=== PATIENT | male | born 1965 | race African-American/Black ===

== ENCOUNTER 2021-05-02 18:50 | Inpatient (IN) | payer OTHER ==
[2021-05-02] MEDS ORDERED: LACTATED RINGERS SOLUTION 1000 ML INFUS.BAG IV ONE ×2 (20:03→21:19)
[2021-05-02 20:34] LABS: BASO % 0.4 % (0-2.0); EOS % 0.1 % (0-4.5); HEMATOCRIT 35.3 % (35.4-49); HEMOGLOBIN 11.4 GM/dL (11.7-16.9); LYMPH % 16.9 % (8-40); MCH 28.8 pg (25.7-33.7); MCHC 32.4 g/dl (32.0-35.9); MEAN CELL VOLUME 88.9 fl (80-96); MEAN PLT VOLUME 9.4 fl (7.5-11.1); MONO % 9.2 % (3.8-10.2); NEUT % 73.4 % (42.8-82.8); PLATELET COUNT 207 10^3/uL (134-434); RBC 3.97 M/mm3 (4.00-5.60); RDW 14.2 % (11.9-15.9); WHITE BLOOD COUNT 10.7 K/mm3 (4.0-10.0)
[2021-05-02 20:55] LABS: CHLORIDE 104 mmol/L (98-107); SODIUM 132 mmol/L (136-145)
[2021-05-02 20:56] LABS: CALCIUM 9.7 mg/dL (8.5-10.1)
[2021-05-02 20:57] LABS: ALBUMIN 3.6 g/dl (3.4-5.0); ANION GAP 11 MMOL/L (8-16); BLOOD UREA NITROGEN 73.1 mg/dL (7-18); CO2 18 mmol/L (21-32)
[2021-05-02 21:00] LABS: CREATININE 4.4 mg/dL (0.55-1.3); SGOT/AST 22 U/L (15-37); SGPT/ALT 53 U/L (13-61)
[2021-05-02 21:02] LABS: BILIRUBIN,TOTAL 0.5 mg/dL (0.2-1); TOT PROT 8.1 g/dl (6.4-8.2)
[2021-05-02 21:03] LABS: ALK PHOS 330 U/L (45-117)
[2021-05-02 21:04] LABS: GLUCOSE,RANDOM 521 mg/dL (74-106)
[2021-05-02 22:02] LABS: INR 1.15 (0.83-1.09); PROTHROMBIN TIME (PATIENT) 13.8 SEC (9.7-13.0)
[2021-05-02 22:04] LABS: ACTIVATED PTT 27.1 SECONDS (25.2-36.5)
[2021-05-02] MEDS ORDERED: INSULIN REGULAR HUMAN 100 UNITS/ML *VIAL IVPUSH ONE (22:42)
[2021-05-02] MEDS ORDERED: DEXTROSE 50%-WATER - 25 GM/50 ML VIAL IVPUSH ONE (22:43)
[2021-05-02] MEDS ORDERED: SODIUM BICARBONATE 8.4% 50 MEQ/50 ML VIAL IV ONE (22:43)
[2021-05-02] MEDS ORDERED: DEXTROSE 50%-WATER 25 GM/50 ML DISP.SYRIN ONE (22:52)
[2021-05-02] MEDS ORDERED: SODIUM BICARBONATE 8.4% - 50 ML ONE (22:52)
[2021-05-02] MEDS ORDERED: ACETAMINOPHEN 1000 MG/100 ML VIAL (NON FORMULARY) IVPB ONE (23:13)
[2021-05-02] MEDS ORDERED: ACETAMINOPHEN INJECTION 100 ML IVPB ONE (23:26)
[2021-05-03 00:48] VITALS: BMI 26.6
[2021-05-03] MEDS: HEPARIN NA (PORCINE) 5,000 UNITS/ML 1ML VIAL SQ SCH ×3 (05:48→21:03)
[2021-05-03] MEDS: INSULIN SLIDING SCALE (NOVOLOG) 1 VIAL SQ SCH ×4 (06:23→23:04)
[2021-05-03 06:42] LABS: BASO % 0.5 % (0-2.0); EOS % 1.2 % (0-4.5); HEMATOCRIT 35.8 % (35.4-49); HEMOGLOBIN 11.3 GM/dL (11.7-16.9); MCH 28.7 pg (25.7-33.7); MCHC 31.6 g/dl (32.0-35.9); MEAN CELL VOLUME 90.8 fl (80-96); MONO % 10.8 % (3.8-10.2); NEUT % 71.5 % (42.8-82.8); PLATELET COUNT 218 10^3/uL (134-434); RBC 3.95 M/mm3 (4.00-5.60); RDW 14.6 % (11.9-15.9)
[2021-05-03 07:03] LABS: CHLORIDE 106 mmol/L (98-107); SODIUM 137 mmol/L (136-145)
[2021-05-03 07:22] LABS: ALBUMIN 3.4 g/dl (3.4-5.0); CALCIUM 9.5 mg/dL (8.5-10.1)
[2021-05-03 07:23] LABS: ANION GAP 10 MMOL/L (8-16); CO2 20 mmol/L (21-32); MAGNESIUM 2.3 mg/dL (1.8-2.4)
[2021-05-03 07:25] LABS: BILIRUBIN,TOTAL 0.7 mg/dL (0.2-1); CHOLESTEROL 175 mg/dL (50-200); CREATININE 3.9 mg/dL (0.55-1.3); SGOT/AST 19 U/L (15-37)
[2021-05-03 07:26] LABS: ALK PHOS 305 U/L (45-117); LDL CHOLESTEROL (ONLY SJRH) 72 mg/dL (5-100); PHOSPHOROUS 3.5 mg/dL (2.5-4.9); TRIGLYCERIDES 122 mg/dL (0-150)
[2021-05-03 07:27] LABS: HDL CHOLESTEROL 84 mg/dL (40-60); SGPT/ALT 46 U/L (13-61); TOT PROT 7.7 g/dl (6.4-8.2)
[2021-05-03 07:34] LABS: GLUCOSE,RANDOM 424 mg/dL (74-106)
[2021-05-03] MEDS: ACETAMINOPHEN 325 MG TABLET (FP) PO PRN ×2 (12:18→21:02)
[2021-05-03] MEDS ORDERED: SODIUM CHLORIDE 0.9% 500 ML INFUS.BAG IV ONE (21:10)
[2021-05-03] MEDS ORDERED: CEFTRIAXONE 1 GM in DEXTROSE 5%-WATER - 50 ML IVPB ONE (21:11)
[2021-05-03 22:07] LABS: PH,URINE 5.5 (5.0-8.0); URINE APPEARANCE CLEAR; URINE BILIRUBIN NEGATIVE (NEGATIVE); URINE COLOR YELLOW; URINE GLUCOSE (UA) 3+ (NEGATIVE); URINE KETONE NEGATIVE (NEGATIVE); URINE LEUK ESTERASE NEGATIVE (NEGATIVE); URINE NITRITE NEGATIVE (NEGATIVE); URINE PROTEIN TRACE (NEGATIVE)
[2021-05-03] MEDS ORDERED: DEXTROSE 5%-WATER - 50 ML IVPB ONE (22:07)
[2021-05-03] MEDS ORDERED: cefTRIAXone SODIUM 1 GM VIAL ONE (22:07)
[2021-05-04] MEDS: HEPARIN NA (PORCINE) 5,000 UNITS/ML 1ML VIAL SQ SCH ×3 (06:02→21:30)
[2021-05-04] MEDS: INSULIN SLIDING SCALE (NOVOLOG) 1 VIAL SQ SCH ×4 (06:02→21:47)
[2021-05-04] MEDS: ACETAMINOPHEN 325 MG TABLET (FP) PO PRN ×3 (06:03→21:30)
[2021-05-04 07:34] LABS: CALCIUM 9.7 mg/dL (8.5-10.1)
[2021-05-04 07:35] LABS: BLOOD UREA NITROGEN 57.5 mg/dL (7-18)
[2021-05-04 07:38] LABS: CREATININE 3.4 mg/dL (0.55-1.3)
[2021-05-04] MEDS ORDERED: BENZOCAINE/MENTH/CETYLPYRD CL 1 EACH LOZENGE MM PRN (09:04)
[2021-05-04] MEDS ORDERED: INSULIN (NOVOLOG) ASPART 100 UNITS/ML 10ML VIAL ONE (13:08)
[2021-05-04] MEDS ORDERED: DOCUSATE SODIUM 100 MG CAPSULE (FP) PO ONE (14:00)
[2021-05-04] MEDS: POLYETHYLENE GLYCOL (HEALTHYLAX) 3350 17 GM PACKET PO SCH (17:21)
[2021-05-04] MEDS ORDERED: SODIUM CHLORIDE 0.45% 1,000 ML IV SCH (17:45)
[2021-05-04] MEDS: SODIUM ZIRCONIUM CYCLOSILICATE (LOKELMA) 5 GM PACKET PO SCH (18:20)
[2021-05-04] MEDS: SODIUM BICARBONATE 650 MG TABLET PO SCH (21:30)
[2021-05-05] MEDS: ACETAMINOPHEN 325 MG TABLET (FP) PO PRN ×2 (04:16→21:14)
[2021-05-05] MEDS: HEPARIN NA (PORCINE) 5,000 UNITS/ML 1ML VIAL SQ SCH ×3 (06:03→21:15)
[2021-05-05] MEDS: INSULIN SLIDING SCALE (NOVOLOG) 1 VIAL SQ SCH ×4 (06:26→21:36)
[2021-05-05 07:02] LABS: BASO % 0.8 % (0-2.0); EOS % 1.3 % (0-4.5); HEMATOCRIT 36.4 % (35.4-49); HEMOGLOBIN 11.7 GM/dL (11.7-16.9); LYMPH % 13.1 % (8-40); MCH 28.7 pg (25.7-33.7); MEAN CELL VOLUME 89.5 fl (80-96); MEAN PLT VOLUME 10.7 fl (7.5-11.1); MONO % 11.6 % (3.8-10.2); NEUT % 73.2 % (42.8-82.8); PLATELET COUNT 210 10^3/uL (134-434); RBC 4.07 M/mm3 (4.00-5.60); RDW 14.2 % (11.9-15.9); WHITE BLOOD COUNT 13.6 K/mm3 (4.0-10.0)
[2021-05-05] MEDS: INSULIN (LEVEMIR) 100 UNITS/ML UNITS SQ SCH (07:14)
[2021-05-05 07:21] LABS: BLOOD UREA NITROGEN 52.5 mg/dL (7-18)
[2021-05-05 07:24] LABS: CALCIUM 9.6 mg/dL (8.5-10.1)
[2021-05-05 07:25] LABS: ALBUMIN 3.2 g/dl (3.4-5.0)
[2021-05-05 07:28] LABS: CREATININE 3.4 mg/dL (0.55-1.3); PHOSPHOROUS 3.4 mg/dL (2.5-4.9)
[2021-05-05 07:29] LABS: TOT PROT 7.9 g/dl (6.4-8.2)
[2021-05-05] MEDS: ACETAMINOPHEN/CAFFEINE/BUTALBITAL 1 TAB PO PRN (10:15)
[2021-05-05] MEDS: SODIUM BICARBONATE 650 MG TABLET PO SCH ×3 (10:16→21:14)
[2021-05-05] MEDS: POLYETHYLENE GLYCOL (HEALTHYLAX) 3350 17 GM PACKET PO SCH (10:16)
[2021-05-05] MEDS: SODIUM ZIRCONIUM CYCLOSILICATE (LOKELMA) 5 GM PACKET PO SCH (10:16)
[2021-05-05] MEDS: ABACAVIR SULFATE 300 MG TABLET PO SCH (21:14)
[2021-05-05] MEDS: RALTEGRAVIR POTASSIUM 400 MG TAB PO SCH (21:15)
[2021-05-05] MEDS ORDERED: INSULIN (LEVEMIR) 100 UNITS/ML UNITS SQ SCH (22:00)
[2021-05-06] MEDS: ACETAMINOPHEN/CAFFEINE/BUTALBITAL 1 TAB PO PRN (02:00)
[2021-05-06] MEDS: HEPARIN NA (PORCINE) 5,000 UNITS/ML 1ML VIAL SQ SCH ×3 (05:03→21:03)
[2021-05-06] MEDS: SODIUM BICARBONATE 650 MG TABLET PO SCH ×3 (05:03→21:01)
[2021-05-06] MEDS: INSULIN (LEVEMIR) 100 UNITS/ML UNITS SQ SCH (06:34)
[2021-05-06] MEDS: INSULIN SLIDING SCALE (NOVOLOG) 1 VIAL SQ SCH ×4 (06:35→21:20)
[2021-05-06 07:15] LABS: BASO % 0.6 % (0-2.0); EOS % 0.8 % (0-4.5); HEMATOCRIT 35.1 % (35.4-49); HEMOGLOBIN 11.4 GM/dL (11.7-16.9); LYMPH % 14.7 % (8-40); MCH 28.9 pg (25.7-33.7); MCHC 32.4 g/dl (32.0-35.9); MEAN PLT VOLUME 10.7 fl (7.5-11.1); MONO % 13.2 % (3.8-10.2); NEUT % 70.7 % (42.8-82.8); PLATELET COUNT 210 10^3/uL (134-434); RBC 3.94 M/mm3 (4.00-5.60); RDW 13.9 % (11.9-15.9); WHITE BLOOD COUNT 13.7 K/mm3 (4.0-10.0)
[2021-05-06 07:40] LABS: BLOOD UREA NITROGEN 46.2 mg/dL (7-18); CALCIUM 9.3 mg/dL (8.5-10.1)
[2021-05-06 07:43] LABS: CREATININE 3.4 mg/dL (0.55-1.3); PHOSPHOROUS 4.1 mg/dL (2.5-4.9)
[2021-05-06 07:45] LABS: BILIRUBIN,TOTAL 1.3 mg/dL (0.2-1); TOT PROT 7.8 g/dl (6.4-8.2)
[2021-05-06] MEDS: ACETAMINOPHEN 325 MG TABLET (FP) PO PRN ×2 (08:12→21:01)
[2021-05-06] MEDS: POLYETHYLENE GLYCOL (HEALTHYLAX) 3350 17 GM PACKET PO SCH (09:59)
[2021-05-06] MEDS: ABACAVIR SULFATE 300 MG TABLET PO SCH ×2 (09:59→21:01)
[2021-05-06] MEDS: lamiVUDine 150 MG TABLET PO SCH (09:59)
[2021-05-06] MEDS: LISINOPRIL 5 MG TABLET PO SCH (09:59)
[2021-05-06] MEDS: RALTEGRAVIR POTASSIUM 400 MG TAB PO SCH ×2 (09:59→21:01)
[2021-05-06] MEDS ORDERED: FLUTICASONE PROP 0.05% 16 GM NASAL SPRAY NS PRN (10:00)
[2021-05-06] MEDS ORDERED: PT OWN MED DRAWER 7, Y5N ONE (20:54)
[2021-05-06] MEDS: ATORVASTATIN CA 20 MG TABLET (FP) PO SCH (21:01)
[2021-05-06] MEDS ORDERED: INSULIN (LEVEMIR) 100 UNITS/ML UNITS SQ SCH ×2 (22:00)
[2021-05-07] MEDS ORDERED: ZOLPIDEM TARTRATE 5 MG TABLET PO ONE (01:00)
[2021-05-07] MEDS: HEPARIN NA (PORCINE) 5,000 UNITS/ML 1ML VIAL SQ SCH ×3 (05:37→21:17)
[2021-05-07] MEDS: SODIUM BICARBONATE 650 MG TABLET PO SCH ×3 (05:37→21:16)
[2021-05-07] MEDS: INSULIN SLIDING SCALE (NOVOLOG) 1 VIAL SQ SCH ×4 (06:37→21:37)
[2021-05-07] MEDS: INSULIN (LEVEMIR) 100 UNITS/ML UNITS SQ SCH ×2 (06:37→21:37)
[2021-05-07] MEDS ORDERED: INSULIN (LEVEMIR) 100 UNITS/ML UNITS SQ SCH (07:00)
[2021-05-07 07:09] LABS: BASO % 0.3 % (0-2.0); EOS % 0.6 % (0-4.5); HEMOGLOBIN 11.5 GM/dL (11.7-16.9); LYMPH % 12.4 % (8-40); MCH 29.2 pg (25.7-33.7); MCHC 32.9 g/dl (32.0-35.9); MEAN CELL VOLUME 88.7 fl (80-96); MEAN PLT VOLUME 9.9 fl (7.5-11.1); MONO % 11.5 % (3.8-10.2); NEUT % 75.2 % (42.8-82.8); PLATELET COUNT 247 10^3/uL (134-434); RBC 3.94 M/mm3 (4.00-5.60); RDW 13.9 % (11.9-15.9); WHITE BLOOD COUNT 14.8 K/mm3 (4.0-10.0)
[2021-05-07 07:26] LABS: BLOOD UREA NITROGEN 49.5 mg/dL (7-18); CALCIUM 9.9 mg/dL (8.5-10.1)
[2021-05-07 07:27] LABS: MAGNESIUM 2.2 mg/dL (1.8-2.4)
[2021-05-07 07:29] LABS: PHOSPHOROUS 3.9 mg/dL (2.5-4.9)
[2021-05-07 07:30] LABS: CREATININE 3.4 mg/dL (0.55-1.3)
[2021-05-07 07:31] LABS: BILIRUBIN,TOTAL 1.4 mg/dL (0.2-1); TOT PROT 8.1 g/dl (6.4-8.2)
[2021-05-07] MEDS ORDERED: PT OWN MED DRAWER 7, Y5N ONE ×2 (09:05→21:07)
[2021-05-07] MEDS: ABACAVIR SULFATE 300 MG TABLET PO SCH ×2 (09:16→21:18)
[2021-05-07] MEDS: POLYETHYLENE GLYCOL (HEALTHYLAX) 3350 17 GM PACKET PO SCH (09:16)
[2021-05-07] MEDS: RALTEGRAVIR POTASSIUM 400 MG TAB PO SCH ×2 (09:17→21:18)
[2021-05-07] MEDS: LISINOPRIL 5 MG TABLET PO SCH (09:17)
[2021-05-07] MEDS: lamiVUDine 150 MG TABLET PO SCH (09:17)
[2021-05-07] MEDS: ACETAMINOPHEN 325 MG TABLET (FP) PO PRN ×3 (09:17→22:02)
[2021-05-07] MEDS: PREGABALIN 100 MG CAPSULE PO SCH ×2 (13:51→21:16)
[2021-05-07] MEDS ORDERED: diphenhydrAMINE HCL 25 MG CAPSULE (FP) PO PRN (17:14)
[2021-05-07] MEDS: ATORVASTATIN CA 20 MG TABLET (FP) PO SCH (21:15)
[2021-05-07] MEDS ORDERED: MELATONIN 5 MG TABLETS PO ONE (21:35)
[2021-05-08] MEDS: PREGABALIN 100 MG CAPSULE PO SCH ×3 (06:28→21:58)
[2021-05-08] MEDS: INSULIN (NOVOLOG MIX 70/30) 100 UNITS/ML MDV SQ SCH ×2 (06:28→17:25)
[2021-05-08] MEDS: HEPARIN NA (PORCINE) 5,000 UNITS/ML 1ML VIAL SQ SCH ×3 (06:32→22:01)
[2021-05-08] MEDS: INSULIN SLIDING SCALE (NOVOLOG) 1 VIAL SQ SCH ×4 (06:33→21:59)
[2021-05-08] MEDS ORDERED: INSULIN (NOVOLOG MIX 70/30) 100 UNITS/ML MDV SQ SCH ×2 (07:00→23:51)
[2021-05-08 08:44] LABS: BASO % 0.6 % (0-2.0); EOS % 0.8 % (0-4.5); HEMATOCRIT 35.7 % (35.4-49); HEMOGLOBIN 11.6 GM/dL (11.7-16.9); LYMPH % 10.9 % (8-40); MCH 29.2 pg (25.7-33.7); MCHC 32.6 g/dl (32.0-35.9); MEAN CELL VOLUME 89.7 fl (80-96); MEAN PLT VOLUME 10.4 fl (7.5-11.1); MONO % 12.6 % (3.8-10.2); NEUT % 75.1 % (42.8-82.8); PLATELET COUNT 298 10^3/uL (134-434); RBC 3.98 M/mm3 (4.00-5.60); RDW 13.9 % (11.9-15.9); WHITE BLOOD COUNT 14.5 K/mm3 (4.0-10.0)
[2021-05-08 09:14] LABS: BLOOD UREA NITROGEN 49.5 mg/dL (7-18)
[2021-05-08 09:17] LABS: CALCIUM 9.7 mg/dL (8.5-10.1); CREATININE 3.6 mg/dL (0.55-1.3); MAGNESIUM 2.4 mg/dL (1.8-2.4); PHOSPHOROUS 3.8 mg/dL (2.5-4.9)
[2021-05-08 09:18] LABS: BILIRUBIN,TOTAL 1.5 mg/dL (0.2-1)
[2021-05-08] MEDS: ACETAMINOPHEN 325 MG TABLET (FP) PO PRN (10:05)
[2021-05-08] MEDS ORDERED: PT OWN MED DRAWER 7, Y5N ONE ×4 (10:33→21:37)
[2021-05-08] MEDS: ABACAVIR SULFATE 300 MG TABLET PO SCH ×2 (10:35→21:58)
[2021-05-08] MEDS: POLYETHYLENE GLYCOL (HEALTHYLAX) 3350 17 GM PACKET PO SCH ×2 (10:35→21:58)
[2021-05-08] MEDS: SODIUM BICARBONATE 650 MG TABLET PO SCH ×2 (10:35→21:58)
[2021-05-08] MEDS: lamiVUDine 150 MG TABLET PO SCH (10:36)
[2021-05-08] MEDS: RALTEGRAVIR POTASSIUM 400 MG TAB PO SCH ×2 (10:36→21:59)
[2021-05-08] MEDS ORDERED: SODIUM ZIRCONIUM CYCLOSILICATE (LOKELMA) 5 GM PACKET PO ONE (13:34)
[2021-05-08 14:09] LABS: BILIRUBIN,DIRECT 1.1 mg/dL (0.0-0.2)
[2021-05-08] MEDS: HYDROmorphone HCL 2 MG TABLET PO PRN (17:18)
[2021-05-08 21:55] LABS: INR 1.02 (0.83-1.09); PROTHROMBIN TIME (PATIENT) 12.3 SEC (9.7-13.0)
[2021-05-08] MEDS: ATORVASTATIN CA 20 MG TABLET (FP) PO SCH (21:58)
[2021-05-08] MEDS ORDERED: MELATONIN 5 MG TABLETS PO ONE (23:19)
[2021-05-09] MEDS: POLYETHYLENE GLYCOL (HEALTHYLAX) 3350 17 GM PACKET PO SCH ×3 (05:17→22:03)
[2021-05-09] MEDS: HEPARIN NA (PORCINE) 5,000 UNITS/ML 1ML VIAL SQ SCH ×3 (05:17→22:02)
[2021-05-09] MEDS: PREGABALIN 100 MG CAPSULE PO SCH ×3 (05:17→22:03)
[2021-05-09] MEDS: INSULIN SLIDING SCALE (NOVOLOG) 1 VIAL SQ SCH ×4 (06:54→22:03)
[2021-05-09] MEDS: INSULIN (NOVOLOG MIX 70/30) 100 UNITS/ML MDV SQ SCH ×2 (06:54→16:41)
[2021-05-09 08:00] LABS: BASO % 0.7 % (0-2.0); EOS % 0.7 % (0-4.5); HEMATOCRIT 35.7 % (35.4-49); HEMOGLOBIN 11.7 GM/dL (11.7-16.9); LYMPH % 12.9 % (8-40); MCH 29.3 pg (25.7-33.7); MCHC 32.7 g/dl (32.0-35.9); MEAN CELL VOLUME 89.5 fl (80-96); MEAN PLT VOLUME 10.8 fl (7.5-11.1); MONO % 11.5 % (3.8-10.2); NEUT % 74.2 % (42.8-82.8); PLATELET COUNT 344 10^3/uL (134-434); RBC 3.99 M/mm3 (4.00-5.60); RDW 13.5 % (11.9-15.9); WHITE BLOOD COUNT 16.9 K/mm3 (4.0-10.0)
[2021-05-09 08:10] LABS: BLOOD UREA NITROGEN 51.3 mg/dL (7-18); CALCIUM 9.8 mg/dL (8.5-10.1)
[2021-05-09 08:11] LABS: MAGNESIUM 2.1 mg/dL (1.8-2.4)
[2021-05-09 08:13] LABS: CREATININE 3.6 mg/dL (0.55-1.3)
[2021-05-09 08:14] LABS: PHOSPHOROUS 3.6 mg/dL (2.5-4.9)
[2021-05-09 08:15] LABS: BILIRUBIN,TOTAL 1.6 mg/dL (0.2-1); TOT PROT 8.4 g/dl (6.4-8.2)
[2021-05-09 08:17] LABS: BILIRUBIN,DIRECT 1.3 mg/dL (0.0-0.2); BILIRUBIN,TOTAL 1.7 mg/dL (0.2-1); TOT PROT 8.5 g/dl (6.4-8.2)
[2021-05-09 08:24] LABS: INR 1.06 (0.83-1.09)
[2021-05-09] MEDS ORDERED: MINERAL OIL ENEMA 133 ML ENEMA PR ONE (10:03)
[2021-05-09] MEDS ORDERED: PT OWN MED DRAWER 7, Y5N ONE ×3 (10:08→21:57)
[2021-05-09] MEDS: lamiVUDine 150 MG TABLET PO SCH (10:12)
[2021-05-09] MEDS: RALTEGRAVIR POTASSIUM 400 MG TAB PO SCH ×2 (10:12→22:02)
[2021-05-09] MEDS: SODIUM BICARBONATE 650 MG TABLET PO SCH ×2 (10:12→22:03)
[2021-05-09] MEDS: DOCUSATE SODIUM 100 MG CAPSULE (FP) PO SCH ×2 (10:12→22:00)
[2021-05-09] MEDS: ABACAVIR SULFATE 300 MG TABLET PO SCH ×2 (10:12→22:03)
[2021-05-09] MEDS: HYDROmorphone HCL 2 MG TABLET PO PRN ×2 (11:09→23:18)
[2021-05-09] MEDS ORDERED: SODIUM ZIRCONIUM CYCLOSILICATE (LOKELMA) 5 GM PACKET PO ONE (12:45)
[2021-05-09] MEDS: ATORVASTATIN CA 20 MG TABLET (FP) PO SCH (22:01)
[2021-05-09] MEDS ORDERED: MELATONIN 5 MG TABLETS PO ONE (23:56)
[2021-05-10] MEDS ORDERED: ACETAMINOPHEN 1000 MG/100 ML VIAL (NON FORMULARY) IVPB ONE (06:15)
[2021-05-10] MEDS: INSULIN SLIDING SCALE (NOVOLOG) 1 VIAL SQ SCH ×4 (06:36→21:42)
[2021-05-10] MEDS: HEPARIN NA (PORCINE) 5,000 UNITS/ML 1ML VIAL SQ SCH ×3 (06:36→21:44)
[2021-05-10] MEDS: INSULIN (NOVOLOG MIX 70/30) 100 UNITS/ML MDV SQ SCH ×2 (06:36→16:37)
[2021-05-10] MEDS: PREGABALIN 100 MG CAPSULE PO SCH ×3 (06:36→21:36)
[2021-05-10] MEDS: POLYETHYLENE GLYCOL (HEALTHYLAX) 3350 17 GM PACKET PO SCH ×3 (06:37→21:36)
[2021-05-10 08:15] LABS: BASO % 0.9 % (0-2.0); EOS % 0.7 % (0-4.5); HEMATOCRIT 33.2 % (35.4-49); LYMPH % 12.5 % (8-40); MCH 29.1 pg (25.7-33.7); MEAN CELL VOLUME 88.1 fl (80-96); MEAN PLT VOLUME 9.5 fl (7.5-11.1); MONO % 10.1 % (3.8-10.2); NEUT % 75.8 % (42.8-82.8); PLATELET COUNT 370 10^3/uL (134-434); RBC 3.77 M/mm3 (4.00-5.60); RDW 13.4 % (11.9-15.9)
[2021-05-10 08:36] LABS: ALBUMIN 2.5 g/dl (3.4-5.0)
[2021-05-10 08:37] LABS: CALCIUM 9.7 mg/dL (8.5-10.1)
[2021-05-10 08:38] LABS: ALBUMIN 2.6 g/dl (3.4-5.0); BILIRUBIN,DIRECT 0.8 mg/dL (0.0-0.2); MAGNESIUM 2.3 mg/dL (1.8-2.4)
[2021-05-10 08:40] LABS: BILIRUBIN,TOTAL 1.2 mg/dL (0.2-1)
[2021-05-10 08:41] LABS: BILIRUBIN,TOTAL 1.3 mg/dL (0.2-1); CREATININE 3.7 mg/dL (0.55-1.3); PHOSPHOROUS 3.6 mg/dL (2.5-4.9); TOT PROT 7.6 g/dl (6.4-8.2)
[2021-05-10 08:42] LABS: TOT PROT 7.6 g/dl (6.4-8.2)
[2021-05-10] MEDS ORDERED: PT OWN MED DRAWER 7, Y5N ONE ×3 (09:31→19:42)
[2021-05-10] MEDS: SODIUM BICARBONATE 650 MG TABLET PO SCH ×2 (09:38→21:37)
[2021-05-10] MEDS: DOCUSATE SODIUM 100 MG CAPSULE (FP) PO SCH ×2 (09:38→21:36)
[2021-05-10] MEDS: ABACAVIR SULFATE 300 MG TABLET PO SCH ×2 (09:38→21:37)
[2021-05-10] MEDS: LISINOPRIL 5 MG TABLET PO SCH (09:38)
[2021-05-10] MEDS: lamiVUDine 150 MG TABLET PO SCH (09:39)
[2021-05-10] MEDS: RALTEGRAVIR POTASSIUM 400 MG TAB PO SCH ×2 (09:39→21:36)
[2021-05-10] MEDS: traMADol HCL 50 MG TABLET PO PRN ×2 (11:33→18:05)
[2021-05-10] MEDS ORDERED: SODIUM CHLORIDE 0.45% 1,000 ML IV SCH (12:00)
[2021-05-10] MEDS: ATORVASTATIN CA 20 MG TABLET (FP) PO SCH (21:36)
[2021-05-11] MEDS: HEPARIN NA (PORCINE) 5,000 UNITS/ML 1ML VIAL SQ SCH ×2 (06:02→14:05)
[2021-05-11] MEDS: PREGABALIN 100 MG CAPSULE PO SCH ×3 (06:02→21:02)
[2021-05-11] MEDS: POLYETHYLENE GLYCOL (HEALTHYLAX) 3350 17 GM PACKET PO SCH ×3 (06:02→21:02)
[2021-05-11] MEDS: INSULIN (NOVOLOG MIX 70/30) 100 UNITS/ML MDV SQ SCH ×2 (06:07→16:46)
[2021-05-11] MEDS: INSULIN SLIDING SCALE (NOVOLOG) 1 VIAL SQ SCH ×4 (06:08→21:02)
[2021-05-11] MEDS ORDERED: INSULIN (LEVEMIR) 100 UNITS/ML UNITS SQ ONE (07:10)
[2021-05-11 08:03] LABS: BASO % 0.6 % (0-2.0); EOS % 1.4 % (0-4.5); HEMATOCRIT 31.4 % (35.4-49); HEMOGLOBIN 10.2 GM/dL (11.7-16.9); LYMPH % 15.4 % (8-40); MCH 29.1 pg (25.7-33.7); MCHC 32.4 g/dl (32.0-35.9); MEAN CELL VOLUME 89.7 fl (80-96); MEAN PLT VOLUME 9.9 fl (7.5-11.1); NEUT % 70.6 % (42.8-82.8); PLATELET COUNT 395 10^3/uL (134-434); RDW 13.4 % (11.9-15.9); WHITE BLOOD COUNT 15.8 K/mm3 (4.0-10.0)
[2021-05-11 08:24] LABS: CALCIUM 9.2 mg/dL (8.5-10.1)
[2021-05-11 08:25] LABS: ALBUMIN 2.4 g/dl (3.4-5.0); BLOOD UREA NITROGEN 50.8 mg/dL (7-18)
[2021-05-11 08:27] LABS: BILIRUBIN,DIRECT 0.8 mg/dL (0.0-0.2)
[2021-05-11 08:28] LABS: CREATININE 3.5 mg/dL (0.55-1.3)
[2021-05-11 08:29] LABS: BILIRUBIN,TOTAL 1.1 mg/dL (0.2-1); TOT PROT 7.2 g/dl (6.4-8.2)
[2021-05-11] MEDS ORDERED: PT OWN MED DRAWER 7, Y5N ONE ×3 (09:03→20:44)
[2021-05-11] MEDS: SODIUM BICARBONATE 650 MG TABLET PO SCH ×2 (09:21→21:02)
[2021-05-11] MEDS: DOCUSATE SODIUM 100 MG CAPSULE (FP) PO SCH ×2 (09:21→21:02)
[2021-05-11] MEDS: LISINOPRIL 5 MG TABLET PO SCH (09:21)
[2021-05-11] MEDS: RALTEGRAVIR POTASSIUM 400 MG TAB PO SCH ×2 (09:53→21:02)
[2021-05-11] MEDS: ABACAVIR SULFATE 300 MG TABLET PO SCH ×2 (09:53→21:02)
[2021-05-11] MEDS: lamiVUDine 150 MG TABLET PO SCH (09:53)
[2021-05-11] MEDS ORDERED: SODIUM ZIRCONIUM CYCLOSILICATE (LOKELMA) 5 GM PACKET PO ONE (11:00)
[2021-05-11] MEDS ORDERED: ACETAMINOPHEN 325 MG TABLET (FP) PO PRN (11:19)
[2021-05-11] MEDS ORDERED: ACETAMINOPHEN 500 MG TABLET (FP) PO PRN (11:23)
[2021-05-11] MEDS: METHYL SALICYLATE/MENTHOL OINT 30 GM TUBE TP SCH ×3 (11:50→22:00)
[2021-05-11 14:11] LABS: HEP B CORE AB, TOT Negative (Negative)
[2021-05-11 16:10] LABS: WEST NILE VIRUS AB SERUM,IGM Negative (Negative)
[2021-05-11 19:14] LABS: GLIADIN ANTIBODY IGA 6 units (0-19); GLIADIN ANTIBODY IGG 2 units (0-19); TRANSGLUTAMINASE IGG < 2 U/mL (0-5)
[2021-05-11] MEDS: ATORVASTATIN CA 20 MG TABLET (FP) PO SCH (21:02)
[2021-05-11] MEDS: MELATONIN 5 MG TABLETS PO PRN (23:38)
[2021-05-12] MEDS: traMADol HCL 50 MG TABLET PO PRN (00:02)
[2021-05-12] MEDS: ACETAMINOPHEN/CAFFEINE/BUTALBITAL 1 TAB PO PRN (01:31)
[2021-05-12] MEDS: POLYETHYLENE GLYCOL (HEALTHYLAX) 3350 17 GM PACKET PO SCH ×3 (05:58→21:02)
[2021-05-12] MEDS: PREGABALIN 100 MG CAPSULE PO SCH ×3 (05:59→21:01)
[2021-05-12] MEDS: INSULIN SLIDING SCALE (NOVOLOG) 1 VIAL SQ SCH ×4 (05:59→21:05)
[2021-05-12] MEDS: INSULIN (NOVOLOG MIX 70/30) 100 UNITS/ML MDV SQ SCH ×2 (05:59→17:04)
[2021-05-12] MEDS: METHYL SALICYLATE/MENTHOL OINT 30 GM TUBE TP SCH ×3 (06:17→21:02)
[2021-05-12 08:00] LABS: BASO % 0.8 % (0-2.0); EOS % 1.4 % (0-4.5); HEMATOCRIT 30.7 % (35.4-49); HEMOGLOBIN 9.9 GM/dL (11.7-16.9); LYMPH % 17.6 % (8-40); MCH 28.8 pg (25.7-33.7); MCHC 32.3 g/dl (32.0-35.9); MEAN CELL VOLUME 89.2 fl (80-96); NEUT % 66.2 % (42.8-82.8); PLATELET COUNT 505 10^3/uL (134-434); RBC 3.45 M/mm3 (4.00-5.60); RDW 13.3 % (11.9-15.9); WHITE BLOOD COUNT 16.6 K/mm3 (4.0-10.0)
[2021-05-12 08:22] LABS: ALBUMIN 2.4 g/dl (3.4-5.0); BLOOD UREA NITROGEN 50.1 mg/dL (7-18)
[2021-05-12 08:23] LABS: CALCIUM 9.6 mg/dL (8.5-10.1)
[2021-05-12 08:24] LABS: MAGNESIUM 2.4 mg/dL (1.8-2.4)
[2021-05-12 08:25] LABS: CREATININE 3.4 mg/dL (0.55-1.3); PHOSPHOROUS 4.7 mg/dL (2.5-4.9)
[2021-05-12 08:26] LABS: TOT PROT 7.4 g/dl (6.4-8.2)
[2021-05-12] MEDS ORDERED: PT OWN MED DRAWER 7, Y5N ONE ×4 (08:34→18:39)
[2021-05-12] MEDS: INSULIN (LEVEMIR) 100 UNITS/ML UNITS SQ SCH (09:09)
[2021-05-12] MEDS: lamiVUDine 150 MG TABLET PO SCH (09:12)
[2021-05-12] MEDS: RALTEGRAVIR POTASSIUM 400 MG TAB PO SCH ×2 (09:13→21:01)
[2021-05-12] MEDS: LISINOPRIL 5 MG TABLET PO SCH (09:13)
[2021-05-12] MEDS: DOCUSATE SODIUM 100 MG CAPSULE (FP) PO SCH ×2 (09:14→21:02)
[2021-05-12] MEDS: SODIUM BICARBONATE 650 MG TABLET PO SCH ×2 (09:14→21:07)
[2021-05-12] MEDS: ABACAVIR SULFATE 300 MG TABLET PO SCH ×2 (17:03→21:01)
[2021-05-12 17:34] LABS: CALCIUM 9.4 mg/dL (8.5-10.1)
[2021-05-12 17:35] LABS: BLOOD UREA NITROGEN 56.9 mg/dL (7-18)
[2021-05-12 17:38] LABS: CREATININE 3.5 mg/dL (0.55-1.3)
[2021-05-12] MEDS: ATORVASTATIN CA 20 MG TABLET (FP) PO SCH (21:01)
[2021-05-12] MEDS: HEPARIN NA (PORCINE) 5,000 UNITS/ML 1ML VIAL SQ SCH (21:02)
[2021-05-12] MEDS ORDERED: ACETAMINOPHEN 325 MG TABLET (FP) PO ONE (22:06)
[2021-05-13] MEDS: MELATONIN 5 MG TABLETS PO PRN ×2 (01:13→02:34)
[2021-05-13] MEDS: HEPARIN NA (PORCINE) 5,000 UNITS/ML 1ML VIAL SQ SCH ×2 (05:47→13:41)
[2021-05-13] MEDS: PREGABALIN 100 MG CAPSULE PO SCH ×2 (05:47→13:40)
[2021-05-13] MEDS: POLYETHYLENE GLYCOL (HEALTHYLAX) 3350 17 GM PACKET PO SCH ×2 (05:47→13:40)
[2021-05-13] MEDS ORDERED: BACITRACIN 15 GM TUBE TOPICAL OINTMENT TP PRN (06:03)
[2021-05-13] MEDS: INSULIN SLIDING SCALE (NOVOLOG) 1 VIAL SQ SCH ×3 (06:07→17:08)
[2021-05-13] MEDS: INSULIN (LEVEMIR) 100 UNITS/ML UNITS SQ SCH (06:07)
[2021-05-13] MEDS: INSULIN (NOVOLOG MIX 70/30) 100 UNITS/ML MDV SQ SCH ×2 (06:07→17:07)
[2021-05-13 07:54] LABS: BASO % 0.8 % (0-2.0); EOS % 2.2 % (0-4.5); HEMATOCRIT 31.5 % (35.4-49); HEMOGLOBIN 10.1 GM/dL (11.7-16.9); LYMPH % 16.9 % (8-40); MCH 28.7 pg (25.7-33.7); MCHC 32.2 g/dl (32.0-35.9); MEAN CELL VOLUME 89.3 fl (80-96); MEAN PLT VOLUME 9.2 fl (7.5-11.1); MONO % 11.1 % (3.8-10.2); PLATELET COUNT 587 10^3/uL (134-434); RBC 3.53 M/mm3 (4.00-5.60); RDW 12.8 % (11.9-15.9); WHITE BLOOD COUNT 14.8 K/mm3 (4.0-10.0)
[2021-05-13 08:14] LABS: ALBUMIN 2.4 g/dl (3.4-5.0); BLOOD UREA NITROGEN 53.4 mg/dL (7-18)
[2021-05-13 08:16] LABS: CALCIUM 9.8 mg/dL (8.5-10.1); TOT PROT 7.8 g/dl (6.4-8.2)
[2021-05-13 08:17] LABS: CREATININE 3.5 mg/dL (0.55-1.3); MAGNESIUM 2.4 mg/dL (1.8-2.4); PHOSPHOROUS 4.3 mg/dL (2.5-4.9)
[2021-05-13] MEDS ORDERED: SODIUM ZIRCONIUM CYCLOSILICATE (LOKELMA) 5 GM PACKET PO ONE (09:34)
[2021-05-13] MEDS: LISINOPRIL 5 MG TABLET PO SCH (09:59)
[2021-05-13] MEDS: DOCUSATE SODIUM 100 MG CAPSULE (FP) PO SCH (10:00)
[2021-05-13] MEDS: SODIUM BICARBONATE 650 MG TABLET PO SCH (10:00)
[2021-05-13] MEDS: RALTEGRAVIR POTASSIUM 400 MG TAB PO SCH (10:00)
[2021-05-13] MEDS: METHYL SALICYLATE/MENTHOL OINT 30 GM TUBE TP SCH (10:00)
[2021-05-13] MEDS: lamiVUDine 150 MG TABLET PO SCH (10:01)
[2021-05-13] MEDS: ABACAVIR SULFATE 300 MG TABLET PO SCH (10:02)
[2021-05-13 13:53] VITALS: PULSE 105
[2021-05-13] MEDS ORDERED: INSULIN (NOVOLOG) ASPART 100 UNITS/ML 10ML VIAL ONE (16:44)
[2021-05-13] MEDS ORDERED: INSULIN (NOVOLOG MIX 70/30) 100 UNITS/ML MDV SQ ONE (16:45)
[2021-05-13 18:59] VITALS: BP 125/67; TEMP 98.8
== END 2021-05-13 18:22 | disposition home or self-care (01) | DRG 637 ==
LOC: JER 18:50 → JERBED 21:19 → J4W 05-03 00:49
PROVIDERS: ADMIT Internal Medicine
DX: E11.00 Type 2 diabetes mellitus with hyperosmolarity without nonketotic hyperglycemic-hyperosmolar coma (NKHHC) (principal); G93.41 Metabolic encephalopathy; N17.9 Acute kidney failure, unspecified; N18.4 Chronic kidney disease, stage 4 (severe); E11.65 Type 2 diabetes mellitus with hyperglycemia; E11.22 Type 2 diabetes mellitus with diabetic chronic kidney disease; I12.9 Hypertensive chronic kidney disease with stage 1 through stage 4 chronic kidney disease, or unspecified chronic kidney disease; E87.5 Hyperkalemia; G25.81 Restless legs syndrome; Z21 Asymptomatic human immunodeficiency virus [HIV] infection status; B34.9 Viral infection, unspecified; D72.829 Elevated white blood cell count, unspecified; R94.5 Abnormal results of liver function studies; K76.0 Fatty (change of) liver, not elsewhere classified; G43.909 Migraine, unspecified, not intractable, without status migrainosus; E11.40 Type 2 diabetes mellitus with diabetic neuropathy, unspecified; K59.09 Other constipation; F41.9 Anxiety disorder, unspecified; R50.9 Fever, unspecified
CPT/HCPCS: 36415; 70450-TC; 70551-TC; 71045-TC-FY; 71046-TC-FY; 71250-TC; 74181-TC; 76705-TC; 76775-TC; 80048; 80053; 80061; 80076; 80307; 81003; 82248; 82550; 82784; 82962; 82977; 83036; 83516; 83540; 83550; 83605; 83615; 83721; 83735; 84100; 84443; 84484; 85025; 85379; 85610; 85651; 85730; 86038; 86140; 86359; 86360; 86480; 86704; 86706; 86707; 86708; 86709; 86780; 86788; 86789; 86803; 87040; 87086; 87340; 87804; 87880; 87899; 93005; 93010; 93306-TC; 93880-TC; 93970-TC; 99285-25; C9803; J0131; J1644; U0003; U0005